=== PATIENT | male | born 1970 | race Caucasian/White ===

== ENCOUNTER → 2022-06-05 | Outpatient (CLI) | payer OTHER, SELFPAY ==
[2022-06-05 09:30] LABS: PSA,Total- Diagnostic 4.47 ng/mL (0.0-4.0)
== END | disposition home or self-care (01) ==
PROVIDERS: Referring Provider Urology; Visit Provider Registered Nurse
DX: R97.20 Elevated prostate specific antigen [PSA] (principal)
CPT/HCPCS: 36415; 84153

== ENCOUNTER → 2022-12-04 | Outpatient (CLI) | payer OTHER, SELFPAY ==
[2022-12-04 16:20] LABS: PSA,Total- Diagnostic 4.63 ng/mL (0.0-4.0)
== END | disposition home or self-care (01) ==
LOC: LAB 13:53
PROVIDERS: Referring Provider Registered Nurse; Visit Provider Registered Nurse
DX: R97.20 Elevated prostate specific antigen [PSA] (principal)
CPT/HCPCS: 36415; 84153

== ENCOUNTER → 2022-12-14 | Outpatient (CLI) | payer OTHER, SELFPAY ==
--- NOTE | 2022-12-14 07:19 | MRI_ITS ---
STUDY: MR PELVIS WITH AND WITHOUT CONTRAST (PROSTATE) REASON FOR EXAM: Male, 52 years old. Elevated PSA TECHNIQUE: Standardized multiparametric prostate MRI with T1, T2, DWI/ADC sequences were obtained in 3 orthogonal planes, and dynamic contrast enhancement sequences. ml of 24ml clariscan contrast material was administered intravenously for the contrast portion of the examination. COMPARISON: None. FINDINGS: The prostate volume measures 75 mm3. The contours of the prostate gland are smooth. There is mass effect on the bladder base. The transition zone is heterogenous. PI-RADS DWI score 1 - No abnormality (normal) on ADC or high b-value DWI. PI-RADS T2W score 2 - A mostly encapsulated nodule OR a homogeneous circumscribed nodule without encapsulation (atypical nodule) or a homogeneous mildly hypointense area between nodules.. Contrast enhancement no early or contemporaneous enhancement; or diffuse multifocal enhancement NOT corresponding to a focal finding on T2W and/or DWI or focal ehancement responding to a lesion demonstrating features of BPH onT2WI (including features of extruded BPH in the PZ). The peripheral zone is homogenous. PI-RADS DWI score 2 - Linear/wedge shaped hypointense on ADC and/or linear/wedge shaped hyperintense on high b-value DWI. PI-RADS T2W score 1 - Uniformaly hyperintense (normal). Contrast enhancement no early or contemporaneous enhancement; or diffuse multifocal enhancement NOT corresponding to a focal finding on T2W and/or DWI or focal enhancement responding to a lesion demonstrating features of BPH onT2WI (including features of extruded BPH in the PZ). The seminal vesicles demonstrate normal margins and T2 signal pattern. No mass lesion or invasion depicted. The rectoprostatic angles are normal. Urinary bladder is normal without wall thickening. The vascular structures of the are normal. Operative changes of the left inguinal abdominal wall. The visualized hollow viscus structures are normal. No bone marrow edema or mass lesion depicted. MRI/Pelvis W/WO Contrast IMPRESSION: 1. PIRADS v2.1 2019 -- 2 - Low (clinically significant cancer is unlikely). Electronically Signed: Tito Escalante (Brooks), at 15:07 EDT Reading Location ID and State: [facility] / [place] , Service support ,
[2022-12-14 08:00] LABS: CREATININE FINGERSTICK < 0.9 mg/dL (0.70-1.30); EGFR FINGERSTICK > 60.0000 mL/min (>60)
== END | disposition home or self-care (01) ==
LOC: MRI 07:16
PROVIDERS: PCP Family Medicine; Referring Provider Urology; Visit Provider Urology
DX: R97.20 Elevated prostate specific antigen [PSA] (principal)
CPT/HCPCS: 72197; A9575

== ENCOUNTER → 2023-06-08 | Outpatient (CLI) | payer OTHER, SELFPAY ==
[2023-06-08 12:27] LABS: PSA,Total- Diagnostic 5.83 ng/mL (0.0-4.0)
== END | disposition home or self-care (01) ==
LOC: LAB 11:18
PROVIDERS: PCP Family Medicine; Referring Provider Urology; Visit Provider Urology
DX: R97.20 Elevated prostate specific antigen [PSA] (principal)
CPT/HCPCS: 36415; 84153

== ENCOUNTER → 2023-09-24 | Outpatient (CLI) | payer OTHER, SELFPAY ==
--- OUTSIDE RECORDS SUMMARY | 2023-09-24 09:30 | XMS RPT_ITS | CCD ---
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 Name Role Phone Anastacio Ronquillo Unavailable Darlin Last Unavailable Unavailable Aleksandra Olmos CMA K Unavailable Unavailable Anastacio Ronquillo Unavailable Darlin Last Unavailable Unavailable YVETTE CLAIRE Admitting Unavailable YVETTE CLAIRE Attending Unavailable YVETTE CLAIRE Primary Care Unavailable LOLLY GARCIA Consulting Unavailable PROVIDER, UNKNOWN Consulting Unavailable PROVIDER, UNKNOWN Consulting Unavailable PROVIDER, UNKNOWN Consulting Unavailable YVETTE CLAIRE Admitting Unavailable YVETTE CLAIRE Attending Unavailable YVETTE CLAIRE Primary Care Unavailable LOLLY GARCIA Consulting Unavailable PROVIDER, UNKNOWN Consulting Unavailable PROVIDER, UNKNOWN Consulting Unavailable PROVIDER, UNKNOWN Consulting Unavailable Keaton Pierre Unavailable [phone] LOLLY Villeda MD Primary Care UnavailKEATON Radford Attending DR LOLLY Villeda MD Primary Care UnavailKEATON Radford Attending DR LOLLY Villeda MD Primary Care Unavaillianne e Medications Completed/Discontinued Medications Medication Drug Class(es) Dates Sig (Normalized) Sig (Original) amLODIPine 10 mg oral tablet (4 sources) Dihydropyridine Calcium Channel Zach take 1 tablet by mouth once daily amLODIPine (NORVASC) 10 mg tablet Take 10 mg by mouth once daily. 0 Active Problems Active Problems Problem Classification Problem Date Documented Da te Episodic/Chronic Abdominal hernia (3 sources) Unilateral inguinal hernia, without obstruction or gangrene, not specified as recurrent; Translations: [Unilateral inguinal hernia, without obstruction or gangrene, not specified as recurrent] Onset: 06-11-2019 Episodic Disorders of lipid metabolism (6 sources) Mixed hyperlipidemia; Translations: [Mixed hyperlipidemia] Onset: 11-09-2021 11-09-2021 Chronic Essential hypertension (13 sources) Hypertensive disorder; Translations: [Essential (primary) hypertension] Onset: 06-11-2019 04-02-2017 Chronic Other and unspecified benign neoplasm (1 source) Hyperplastic polyp of large intestine; Translations: [Polyp of colon] Episodic Other liver diseases (2 sources) Unspecified jaundice; Translations: [Unspecified jaundice] Onset: 07-23-2023 Episodic Other nutritional; endocrine; and metabolic disorders (1 source) Obesity, unspecified; Translations: [Obesity, unspecified] Onset: 06-11-2019 Chronic Other nutritional; endocrine; and metabolic disorders (1 source) Body mass index (BMI) 30.0-30.9, adult; Translations: [Body mass index (BMI) 30.0-30.9, adult] Onset: 06-11-2019 Chronic Other screening for suspected conditions (not mental disorders or infectious disease) (1 source) Patient encounter status; Translations: [Encounter for screening for malignant neoplasm of colon] Episodic Past or Other Problems Problem Classification Problem Date Documented Da te Episodic/Chronic Open wounds of head; neck; and trunk (6 sources) Laceration without foreign body of scalp, initial encounter; Translations: [Laceration without foreign body of scalp, initial encounter] Onset: 04-02-2017 04-02-2017 Episodic Results Test Name Value Interpretation Reference Range Facil ity Vital Signs Date Time Vital Sign Value Performing Clinician Faci lity 12-16-2021 10:02-0400 Diastolic blood pressure 84 mm[Hg] Jade Pritchett MD Work Phone: [facility] 12-16-2021 10:02-0400 Heart rate 76 /min Jade Pritchett MD Work Phone: [facility] 12-16-2021 10:02-0400 Respiratory rate 16 /min Jade Pritchett MD Work Phone: [facility] 12-16-2021 10:02-0400 SaO2% (BldA) [Mass fraction] 99 % Jade Pritchett MD Work Phone: [facility] 12-16-2021 10:02-0400 Systolic blood pressure 133 mm[Hg] Jade Pritchett MD Work Phone: [facility] 12-16-2021 08:40-0400 Body temperature 97.5 [degF] Jade Pritchett MD Work Phone: [facility] 12-16-2021 08:40-0400 Body weight 117 kg Jade Pritchett MD Work Phone: [facility] 04-09-2017 10:28-0400 Body Temperature 98.8 [degF] Anastacio ANDERS [facility] Work Phone: 04-09-2017 10:28-0400 Pulse (Heart Rate) 76 /min Anastacio ANDERS [facility] Work Phone: 04-09-2017 10:28-0400 Respiratory Rate 12 /min Anastacio ANDERS [facility] Work Phone: 04-02-2017 09:39-0400 BMI (Body Mass Index) 31.77 kg/m2 Anastacio ANDERS [facility] Work Phone: 04-02-2017 09:39-0400 Body Temperature 97.7 [degF] Anastacio ANDERS [facility] Work Phone: 04-02-2017 09:39-0400 BP Diastolic 96 mm[Hg] Anastacio ANDERS [facility] Work Phone: 04-02-2017 09:39-0400 BP Systolic 162 mm[Hg] Anastacio ANDERS [facility] Work Phone: 04-02-2017 09:39-0400 Height 193.04 cm Anastacio ANDERS [facility] Work Phone: 04-02-2017 09:39-0400 Pulse (Heart Rate) 72 /min Anastacio ANDERS [facility] Work Phone: 04-02-2017 09:39-0400 Weight 118.39 kg Anastacio ANDERS [facility] Work Phone: Encounters Encounter Date Encounter Type Care Provider Facility Start: 07-23-2023 End: 07-28-2023 ambulatory KEATON PIERRE EDGE WORKER-FORM SETTER SUPERVISOR Facility:A Start: 01-16-2023 End: 01-20-2023 ambulatory KEATON PIERRE EDGE WORKER-FORM SETTER SUPERVISOR Facility:A Start: 01-15-2023 End: 01-20-2023 ambulatory KEATON PIERRE EDGE WORKER-FORM SETTER SUPERVISOR Facility:A Start: 12-28-2021 End: 12-28-2021 ambulatory Eugenia Arriagaos EDGE WORKER.FORM SETTER SUPERVISOR Work Phone: Gastroenterology Procedures Date Procedure Procedure Detail Performing Clinician Start: 12-16-2021 Colonoscopy flx dx w /collj spec when pfrmd Eugenia Barreto EDGE WORKER.FORM SETTER SUPERVISOR Work Phone: Start: 12-16-2021 Colonoscopy Jade Pritchett MD Work Phone: Start: 04-02-2017 End: 04-02-2017 Post-accident non-DOT drug screen Anastacio ANDERS Work Phone: Plan of Treatment Date Care Activity Detail Author Start: 12-17-2031 Colonoscopy COLONOSCOPY [facility] Start: 12-17-2031 COLORECTAL CANCER SCREENING COLORECTAL CANCER SCREENING [facility] Start: 12-16-2022 Colonoscopy COLONOSCOPY [facility] Start: 12-16-2022 COLORECTAL CANCER SCREENING COLORECTAL CANCER SCREENING [facility] Start: 05-18-2022 Influenza vaccination INFLUENZA (Season Ended) [facility] Start: 05-18-2021 Influenza vaccination INFLUENZA (#1) [facility] Start: 2021 SHINGRIX VACCINE (1 of 2) SHINGRIX VACCINE (1 of 2) [facility] Start: 04-09-2017 End: 04-09-2017 Appointment [facility] Work Phone: Start: 04-02-2017 End: 04-02-2017 Appointment Appointment [facility] Work Phone: Start: 2016 COLOGUARD (FIT-DNA) COLOGUARD (FIT-DNA) [facility] Start: 2016 Colonoscopy COLONOSCOPY [facility] Start: 2016 COLORECTAL CANCER SCREENING COLORECTAL CANCER SCREENING [facility] Start: [address] COLONOGRAPHY [facility] Start: 2016 DIABETES SCREEN DIABETES SCREEN [facility] Start: 2016 FECAL OCCULT BLOOD FECAL OCCULT BLOOD [facility] Start: 2016 SIGMOIDOSCOPY SIGMOIDOSCOPY [facility] Start: 2006 LIPID SCREEN LIPID SCREEN [facility] Start: 1990 Urine microalbumin profile DTAP,TDAP,TD (1 - Tdap) [facility] Start: 1989 ANNUAL PCP TEAM CHRONIC DISEASE VISIT ANNUAL PCP TEAM CHRONIC DISEASE VISIT [facility] Start: 1989 BP CONTROLLED (<130/80) BP CONTROLLED (<130/80) [facility] Start: 1989 HEPATITIS C SCREENING HEPATITIS C SCREENING [facility] Start: 1989 HIV SCREENING HIV SCREENING [facility] Start: 1983 Adult depression screening assessment DEPRESSION SCREENING [facility] Start: 1976 COVID-19 VACCINE (1) COVID-19 VACCINE (1) [facility] SURGICAL PATHOLOGY [facility] Work Phone: Immunizations Immunization Date Immunization Notes Care Provider Fa patricia 04-02-2017 TD(adult) unspecifie d formulation Anastacio ANDERS [facility] Work Phone: 04-02-2017 [id number] Anastacio ANDERS [facility] Now [facility] Work Phone: Payers Date Payer Category Payer Unknown [id number] 2016 Unknown [id number] [id number] 1971 Unknown [id number] [id number] 1971 Unknown [id number] [id number] 1971 Unknown [id number] [id number] 1971 Unknown [id number] [id number] 1971 Unknown [id number] 2.16.8 [id number] Social History Date Type Detail Facility Start: [facility]09-[facility] Work Phone: Start: 11-09-2021 Tobacco use and exposure Smokeless tobacco non-user [facility] Work Phone: Start: 11-15-2021 End: 12-28-2021 Alcohol intake Current drinker of alcohol (finding) [facility] Start: 1970 Sex Assigned At Not on file [facility] Start: 11-15-2021 End: 12-16-2021 Exposure to SARS-CoV-2 (event) Not sure [facility] Start: 12-16-2021 History SDOH Alcohol Comment occ [facility] Start: 1970 Sex Assigned At Male [facility] Progress note 12-28-2021 Note Date & Type Note Facility 12-28-2021 Note HNO ID: [id number] Author: Eugenia Barreto APRN.FORM SETTER SUPERVISOR Service: ? Author Type: Nurse Practitioner Type: Progress Notes Filed: 12/28/2021 3:16 PM Note Text: VIRTUAL VISIT FOLLOW UP I had a virtual visit with Mr. Macdonald today for follow up of colonoscopy. UPDATED HISTORY: The patient was seen by 12/16/2021 for colonoscopy for screening colonoscopy(first colonoscopy). The procedure report has been reviewed and findings as follows: Impression: ? - Non-bleeding internal hemorrhoids. ?- One 2 to 4 mm polyp in the rectum, removed with a ?cold snare. Resected and retrieved. FINAL DIAGNOSIS A. Rectal polyp, biopsy: - Hyperplastic polyp PAST MEDICAL HISTORY Diagnosis Date - HTN (hypertension) - Mixed hyperlipidemia - Sleep apnea PAST SURGICAL HISTORY Procedure Laterality Date - COLONOSCOPY 12/16/2021 - HERNIA REPAIR HX - INGUINAL HERNIA REPAIR HX Left 2019 No family history on file. Social History Tobacco Use - Smoking status: Never Smoker - Smokeless tobacco: Never Used Substance Use Topics - Alcohol use: Yes Comment: occ - Drug use: Never Current Outpatient Medications Medication Sig Dispense Refill - lisinopril (ZESTRIL, PRINIVIL) 20 mg tablet Take 20 mg by mouth once daily. - amLODIPine (NORVASC) 10 mg tablet Take 10 mg by mouth once daily. - atorvastatin (LIPITOR) 20 mg tablet Take 20 mg by mouth once daily. - losartan (COZAAR) 25 mg tablet Take 25 mg by mouth once daily. - polyethylene glycol 3350 (MIRALAX, GLYCOLAX) 17 gram/dose powder Use as directed for Miralax / Gatorade Bowel Prep Kit 238 g 0 - Bisacodyl (DULCOLAX) 5 mg tab Use as directed for Miralax / Gatorade Bowel Prep Kit 4 tablet 0 No current facility-administered medications for this visit. ALLERGIES No Known Allergies PHYSICAL FINDINGS OF NOTE: General ? Normal, healthy, cooperative, in no acute distress Able to interact verbally by video conference Psych ? ORIENTATION: normal to time place, person and situation Mood/Affect: AFFECT AND MOOD: Normal Head/Neuro ? Normal size and shape Facial appearance normal Pulmonary ? respiratory effort normal Abdominal ? Not performed Skin ? abnormal lesions not visualized Motor ? patient seen sitting with Normal appearing strength and coordination IMPRESSION (K63.5) Hyperplastic colonic polyp, unspecified part of colon (primary encounter diagnosis) RECOMMENDATION: Assessment/Plan (K63.5) Hyperplastic colonic polyp, unspecified part of colon (primary encounter diagnosis) 1. Hyperplastic colonic polyp, unspecified part of colon -I have reviewed the procedure and pathology reports, as well as the images, with the patient. One 2 to 4 mm polyp in the rectum - hyperplastic polyp- Patient denies a family history of colon cancer or colon polyps. REcommend 10 year colon cancer surveillance screening. Follow up in office 3 months/PRN. Recommended to please call office/go to ER if fever, chills, chest pain, SOB, diarrhea, nausea, emesis, worsening abdominal pain, dehydration occurs I spent 30 minutes in the visit, with more than 50% of the total gkja-uv-aoyo time of the visit in counseling / coordination of care. I have confirmed and edited as necessary, the PFSH and ROS obtained by others. Eugenia Barreto APRN.FORM SETTER SUPERVISOR December 28, 2021 3:12 PM [facility] History of Present illness Narrative 12-28-2021 Eugenia Barreto APRN.[facility] - 12/28/2021 2:58 PM EDT Note Date & Type Note Facility 12-28-2021 History of Presen t illness Narrative VIRTUAL VISIT FOLLOW UP I had a virtual visit with Mr. Macdonald today for follow up of colonoscopy. UPDATED HISTORY: The patient was seen by 12/16/2021 for colonoscopy for screening colonoscopy(first colonoscopy). The procedure report has been reviewed and findings as follows: Impression: - Non-bleeding internal hemorrhoids. - One 2 to 4 mm polyp in the rectum, removed with a cold snare. Resected and retrieved. FINAL DIAGNOSIS A. Rectal polyp, biopsy: - Hyperplastic polyp PAST MEDICAL HISTORY Diagnosis Date HTN (hypertension) Mixed hyperlipidemia Sleep apnea PAST SURGICAL HISTORY Procedure Laterality Date COLONOSCOPY 12/16/2021 HERNIA REPAIR HX INGUINAL HERNIA REPAIR HX Left 2019 No family history on file. Social History Tobacco Use Smoking status: Never Smoker Smokeless tobacco: Never Used Substance Use Topics Alcohol use: Yes Comment: occ Drug use: Never Current Outpatient Medications Medication Sig Dispense Refill lisinopril (ZESTRIL, PRINIVIL) 20 mg tablet Take 20 mg by mouth once daily. amLODIPine (NORVASC) 10 mg tablet Take 10 mg by mouth once daily. atorvastatin (LIPITOR) 20 mg tablet Take 20 mg by mouth once daily. losartan (COZAAR) 25 mg tablet Take 25 mg by mouth once daily. polyethylene glycol 3350 (MIRALAX, GLYCOLAX) 17 gram/dose powder Use as directed for Miralax / Gatorade Bowel Prep Kit 238 g 0 Bisacodyl (DULCOLAX) 5 mg tab Use as directed for Miralax / Gatorade Bowel Prep Kit 4 tablet 0 No current facility-administered medications for this visit. ALLERGIES No Known Allergies PHYSICAL FINDINGS OF NOTE: General Normal, healthy, cooperative, in no acute distress Able to interact verbally by video conference Psych ORIENTATION: normal to time place, person and situation Mood/Affect: AFFECT AND MOOD: Normal Head/Neuro Normal size and shape Facial appearance normal Pulmonary respiratory effort normal Abdominal Not performed Skin abnormal lesions not visualized Motor patient seen sitting with Normal appearing strength and coordination IMPRESSION (K63.5) Hyperplastic colonic polyp, unspecified part of colon (primary encounter diagnosis) RECOMMENDATION: Assessment/Plan (K63.5) Hyperplastic colonic polyp, unspecified part of colon (primary encounter diagnosis) 1. Hyperplastic colonic polyp, unspecified part of colon -I have reviewed the procedure and pathology reports, as well as the images, with the patient. One 2 to 4 mm polyp in the rectum - hyperplastic polyp- Patient denies a family history of colon cancer or colon polyps. REcommend 10 year colon cancer surveillance screening. Follow up in office 3 months/PRN. Recommended to please call office/go to ER if fever, chills, chest pain, SOB, diarrhea, nausea, emesis, worsening abdominal pain, dehydration occurs I spent 30 minutes in the visit, with more than 50% of the total [id number] time of the visit in counseling / coordination of care. I have confirmed and edited as necessary, the PFSH and ROS obtained by others. Eugenia Barreto APRN.FORM SETTER SUPERVISOR December 28, 2021 3:12 PM documented in this encounter [facility] Nurse Note 12-16-2021 Jennifer Del Cid RN - 12/16/2021 9:42 AM EDTGlorena Chung RN - 12/16/2021 9:03 AM EDT Note Date & Type Note Facility 12-16-2021 Nurse Note Pt received in PACU. Pt awake but mildly drowsy.Denies pain or nausea. Abd soft and non distended. Jennifer Del Cid RN [facility] PRE-OP NURSING HAND OFF NOTE SBAR Hand off given to Janet Reyna RN. Hand off was communicated and all questions were answered. Shawanda Chung RN documented in this encounter [facility] History and physical note 12-16-2021 Jade Pritchett MD - 12/16/2021 9:00 AM EDTLjesse Pritchett MD - 12/16/2021 9:00 AM EDT Note Date & Type Note Facility 12-16-2021 History and physi stephanie note UPDATED PROCEDURAL SEDATION HISTORY AND PHYSICAL EXAMINATION SERVICE DATE: 12/16/2021 SERVICE TIME: 9:01 PHYSICAL EXAM MUST BE COMPLETED ON ADMISSION PROCEDURE: colonoscopy, possible biopsies Procedure Indications: screening for colon cancer The History and Physical (completed in the past 30 days) has been reviewed and the patient has been examined. The contents accurately reflect the patient's condition with the following additions or revisions since the H&P was completed. ASA Class: ASA Class:: Patient with mild systemic disease Examination indicates no changes. AIRWAY: Airway Visualization of Uvula: Yes Mouth opening greater than 2 fingerbreadths: Yes Neck Full Range of Motion: Yes LUNGS: Lungs clear to auscultation CARDIAC: Regular rhythm,Regular rate Provisional Diagnosis/Treatment Plan: colonoscopy, possible biopsies SEDATION GOAL: Moderate This H&P can be found in the Electronic Medical Record . SIGNATURE: Jade Pritchett MD PATIENT NAME: Sean Macdonald DATE: December 16, 2021 TIME: 9:02 AM HISTORY AND PHYSICAL Sean Macdonald 1970 REFERRING PHYSICIAN: Eugenia Barreto APRN.FORM SETTER SUPERVISOR CHIEF COMPLAINT: No chief complaint on file. HPI: The patient is a 51 year old male presents for screening for colon cancer via colonoscopy The patient denies blood in stools, denies abdominal pain, and denies changes in bowel habits. The patient notes no colon cancer in immediate family. The patient has not had previous colonoscopy. PAST MEDICAL HISTORY Diagnosis Date HTN (hypertension) Mixed hyperlipidemia PAST SURGICAL HISTORY Procedure Laterality Date INGUINAL HERNIA REPAIR HX Left 2019 Current Outpatient Medications Medication Sig polyethylene glycol 3350 (MIRALAX, GLYCOLAX) 17 gram/dose powder Use as directed for Miralax / Gatorade Bowel Prep Kit Bisacodyl (DULCOLAX) 5 mg tab Use as directed for Miralax / Gatorade Bowel Prep Kit lisinopril (ZESTRIL, PRINIVIL) 20 mg tablet Take 20 mg by mouth once daily. amLODIPine (NORVASC) 10 mg tablet Take 10 mg by mouth once daily. atorvastatin (LIPITOR) 20 mg tablet Take 20 mg by mouth once daily. losartan (COZAAR) 25 mg tablet Take 25 mg by mouth once daily. (Patient not taking: Reported on 11/15/2021 ) ALLERGIES: Patient has no known allergies. PERSONAL HISTORY: Social History Tobacco Use Smoking status: Never Smoker Smokeless tobacco: Never Used Substance Use Topics Alcohol use: Yes Drug use: Never FAMILY HISTORY: No family history on file. REVIEW OF SYSTEMS: General - denies fevers HEENT - denies trauma/infections Resp - denies coughing up blood, denies breathing difficulties Cardiac - denies chest pain GI - denies abdominal pain, denies blood in stools, denies vomiting up of blood - denies blood in urine Endocrine - denies diabetes Psych - denies hallucinations Physical examination: Vital signs in chart, reviewed and noted by me General WD/WN WM in no apparent distress, alert and oriented Head Normocephalic. EOM intact with sclera clear. Mouth with mucus membranes moist. Neck - supple with no jugular venous distention noted. Trachea is midline. Lungs clear to auscultation. Normal breath sounds. No rales/rhonchi/wheezing noted. Heart normal heart sounds. No rubs/clicks/murmurs noted. Regular rate. Abdomen soft and benign. Extremities no pitting edema noted. Skin Normal skin integrity. Neurological non focal Psych calm and appropriate Impression: screening for colon cancer Discussion/Plan/Recommendations: I have discussed the above with the patient. I have offered colonoscopy, possible biopsies I have explained the procedure to the patient. I have counseled the patient as to the risks of the procedure, including but not limited to: infection, bleeding, injury to any intrabdominal organs such as liver/spleen, perforation of the GI tract, inability to complete the procedure, complications of anesthesia, etc. the patient understands. The patient was offered a surgery/procedure at a [facility] facility. The provider and patient have discussed in detail the risk of exposure to and/or potential harm posed by the COVID-19 virus with having a surgery/procedure at this time versus the risk of delaying the surgery/procedure. It is not possible to know either the risk of delaying the surgery or procedure or chance of getting an infection with perfect accuracy, but a joint decision was made between the patient and the provider to proceed at this time with the scheduled surgery/procedure. The patient wishes to proceed. I have answered all questions to the patient s satisfaction and the patient has no further questions. Jade Pritchett MD documented in this encounter [facility] Note 12-13-2021 Telephone Encounter - Tess Perkins RN - 12/13/2021 1:21 PM EDT Note Date & Type Note Facility 12-13-2021 Miscellaneous Notes Patient calling to request Miralax Bowel Prep instructions for upcoming colonoscopy. Informed patient how he can review instructions on [facility] website, which he states he will do. Instructed to call office if has any other questions. Tess Perkins RN documented in this encounter [facility] Progress note 11-15-2021 Note Date & Type Note Facility 11-15-2021 Note HNO ID: [id number] Author: Eugenia Barreto APRN.FORM SETTER SUPERVISOR Service: ? Author Type: Nurse Practitioner Type: Progress Notes Filed: 11/15/2021 8:45 AM Note Text: CHIEF COMPLAINT: Patient presents with: Outpatient Colonoscopy This consult was requested by Keaton Pierre* for an opinion regarding colon cancer screening. My final recommendations will be communicated to the requesting health care provider by way of the shared medical record for internal providers or letter via the [employer] for external providers. Sean Macdonald is a 51 year old male with a past medical history of hyperlipidemia, HTN, elevated bilirubin. Who presents for colon cancer screening. HPI: The patient denies change in bowel habits, denies black stool,rectal bleeding or abdominal pain. Having a formed bowel movement daily. Denies upper GI concerns Record Review: [facility] / Outside records reviewed. PAST MEDICAL HISTORY Diagnosis Date - HTN (hypertension) - Mixed hyperlipidemia PAST SURGICAL HISTORY Procedure Laterality Date - INGUINAL HERNIA REPAIR HX Left 2019 Allergies: ALLERGIES No Known Allergies Medications: lisinopril (ZESTRIL, PRINIVIL) 20 mg tablet Take 20 mg by mouth once daily. amLODIPine (NORVASC) 10 mg tablet Take 10 mg by mouth once daily. atorvastatin (LIPITOR) 20 mg tablet Take 20 mg by mouth once daily. polyethylene glycol 3350 (MIRALAX, GLYCOLAX) 17 gram/dose powder Use as directed for Miralax / Gatorade Bowel Prep Kit Bisacodyl (DULCOLAX) 5 mg tab Use as directed for Miralax / Gatorade Bowel Prep Kit losartan (COZAAR) 25 mg tablet Take 25 mg by mouth once daily. History reviewed. No pertinent family history. Employer And Job Title: None on file Years Of Education Completed: Not specified Marital Status: Social History Tobacco Use - Smoking status: Never Smoker - Smokeless tobacco: Never Used Substance Use Topics - Alcohol use: Yes - Drug use: Never Review of Systems: Review of Systems All other systems reviewed and are negative. Are you taking any blood thinners? No Physical Examination: BP 138/88 Pulse 91 Ht 6' 3.984 (1.93m) Wt 258 lb (117.0kg) SpO2 99% BMI 31.42 kg/(m2). Physical Exam Constitutional: Appearance: Normal appearance. He is normal weight. HENT: Head: Normocephalic and atraumatic. Eyes: Extraocular Movements: Extraocular movements intact. Pupils: Pupils are equal, round, and reactive to light. Cardiovascular: Rate and Rhythm: Normal rate and regular rhythm. Pulses: Normal pulses. Heart sounds: Normal heart sounds. Pulmonary: Effort: Pulmonary effort is normal. Breath sounds: Normal breath sounds. Abdominal: General: Abdomen is flat. Bowel sounds are normal. Palpations: Abdomen is soft. Musculoskeletal: General: Normal range of motion. Cervical back: Normal range of motion and neck supple. Skin: General: Skin is warm and dry. Neurological: General: No focal deficit present. Mental Status: He is alert and oriented to person, place, and time. Psychiatric: Mood and Affect: Mood normal. Behavior: Behavior normal. ASSESSMENT: Colon cancer screening (primary encounter diagnosis) PLAN: Assessment/Plan (Z12.11) Colon cancer screening (primary encounter diagnosis) 1. Colon cancer screening - COLONOSCOPY SCREENING -Patient presents today for colon cancer screening. Patient denies upper or lower GI concerns at this time. Denies a family history of colon cancer or colon polyps. Recommend colonoscopy Follow up in office 3 months/PRN. Recommended to please call office/go to ER if fever, chills, chest pain, SOB, diarrhea, nausea, emesis, worsening abdominal pain, dehydration occurs I spent 30 minutes in the visit, with more than 50% of the total [id number] time of the visit in counseling / coordination of care. I have confirmed and edited as necessary, the PFSH and ROS obtained by others. Eugenia Barreto APRN.FORM SETTER SUPERVISOR November 15, 2021 8:44 AM [facility] - Mei Mathis LPN - 11/15/2021 8:59 AM EST Note Date & Type Note Facility 11-15-2021 Miscellaneous Notes Patient is scheduled at [facility] on 12/16/[address] Pritchett for a colonoscopy. DX: Colon cancer screening [Z12.11 (ICD-10-CM)] Verbal and written instructions given. documented in this encounter [facility] Evaluation note Note Date & Type Note Facility documented in this encounter [facility] Evaluation note Note Date & Type Note Facility documented in this encounter [facility] Reason for visit Narrative Outpatient Procedure (Routine) - Closed Note Date & Type Note Facility Referral ID Status Reason Start Date Expiration Date V isits Requested Visits Authorized [id number] Closed Auto-Generate d Referral 12/16/2021 11/15/2022 1 1 [facility] Summary Purpose Family History No Family History Records FoundNo Family History Records FoundNo Family History Records Found Advance Directives No Advanced Directives Records FoundDocuments on File Type Date Recorded Patient Transmitter Supervisor Expl anation Advance Directive(s) 11/25/2021 12:27 PM Documents on File Type Date Recorded Patient Transmitter Supervisor Expl anation Advance Directive(s) 12/16/2021 8:13 AM Advance Directive(s) 11/25/2021 12:27 PM Documents on File Type Date Recorded Patient Transmitter Supervisor Expl anation Advance Directive(s) 12/16/2021 8:13 AM Advance Directive(s) 11/25/2021 12:27 PM Medications Administered Section Inactive Administered Medications - up to 3 most recent administrations Medication Order MAR Action Action Date Dose Rate Site diphenhydrAMINE 12.5-50 mg injection (BENADRYL) 12.5-50 mg, INTRAVENOUS, DIRECTED, Starting on Sun12/16/21 at 0930, Until Sun12/16/21 at 1329, DOSING DIRECTED BY PHYSICIAN FOR PROCEDURAL SEDATION ONLY, Intraprocedure Given 12/16/2021 9:10 AM EDT 50 mg fentaNYL 50 mcg/mL 25-100 mcg injection (SUBLIMAZE) 25-100 mcg, INTRAVENOUS, DIRECTED, Starting on Sun12/16/21 at 0930, Until Sun12/16/21 at 1329, DOSING DIRECTED BY PHYSICIAN FOR PROCEDURAL SEDATION ONLY, Intraprocedure Given 12/16/2021 9:22 AM EDT 50 mcg Additional Source Comments (unrecognized sect ion and content) No Status Records FoundNo Status Records FoundNo Status Records Found INFORMATION SOURCE (unrecogn ized section and content) DATE CREATED AUTHOR AUTHOR'S ORGANIZ ATION 12/29/2021 [facility] DATE CREATED AUTHOR AUTHOR'S ORGANIZ ATION 08/05/2023 [facility] ([place]) Source Comments (unrecognize d section and content) In the event this informatio n is protected by the Federal Confidentiality of Alcohol and Drug Abuse Patient Records regulations: The Federal rules restrict any use of the information to criminally investigate or prosecute any alcohol or drug abuse patient.[facility] the event this information is protected by the Federal Confidentiality of Alcohol and Drug Abuse Patient Records regulations: The Federal rules restrict any use of the information to criminally investigate or prosecute any alcohol or drug abuse patient.[facility] the event this information is protected by the Federal Confidentiality of Alcohol and Drug Abuse Patient Records regulations: The Federal rules restrict any use of the information to criminally investigate or prosecute any alcohol or drug abuse patient.[facility] the event this information is protected by the Federal Confidentiality of Alcohol and Drug Abuse Patient Records regulations: The Federal rules restrict any use of the information to criminally investigate or prosecute any alcohol or drug abuse patient.[facility] Reason for Visit (unrecogniz ed section and content) Reason Comments Procedure coloonscopy Reason Comments Surgical Followup colonoscopy complete d on 12/16/2021 Care Teams (unrecognized sec tion and content) 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 This clinical summary was aggregated from multiple sources. Caution should be exercised in using it in the provision of clinical care. This summary normalizes information from multiple sources, and as a consequence, information in this document may materially change the coding, format and clinical context of patient data. In addition, data may be omitted in some cases. CLINICAL DECISIONS SHOULD BE BASED ON THE PRIMARY CLINICAL RECORDS. [facility] [employer] [facility]. provides no warranty or guarantee of the accuracy or completeness of information in this document.
[2023-09-24 11:10] LABS: PSA,Total- Diagnostic 6.28 ng/mL (0.0-4.0)
== END | disposition home or self-care (01) ==
LOC: LAB 09:05
PROVIDERS: PCP Family Medicine; Visit Provider Urology
DX: R97.20 Elevated prostate specific antigen [PSA] (principal)
CPT/HCPCS: 36415; 84153

== ENCOUNTER → 2023-09-25 | Outpatient (CLI) | payer OTHER, SELFPAY ==
[2023-09-26 12:09] LABS: PSA, Free 1.27 ng/mL; PSA, Free % 22.9 % (.)
== END | disposition home or self-care (01) ==
LOC: LAB 10:36
PROVIDERS: PCP Family Medicine; Referring Provider Urology; Visit Provider Urology
DX: R97.20 Elevated prostate specific antigen [PSA] (principal)
CPT/HCPCS: 36415; 84153; 84154

== ENCOUNTER → 2024-03-21 | Outpatient (CLI) | payer OTHER, SELFPAY ==
[2024-03-21 11:21] LABS: PSA,Total- Diagnostic 5.64 ng/mL (0.0-4.0)
== END | disposition home or self-care (01) ==
LOC: LAB 09:30
PROVIDERS: PCP Family Medicine; Referring Provider Urology; Visit Provider Urology
DX: R97.20 Elevated prostate specific antigen [PSA] (principal)
CPT/HCPCS: 36415; 84153

== ENCOUNTER → 2025-04-10 | Outpatient (CLI) | payer OTHER, SELFPAY ==
[2025-04-10 11:39] LABS: PSA,Total- Diagnostic 5.53 ng/mL (0.00-4.00)
== END | disposition home or self-care (01) ==
PROVIDERS: PCP Family Medicine; Referring Provider Urology; Visit Provider Urology
DX: R97.20 Elevated prostate specific antigen [PSA] (principal)
CPT/HCPCS: 36415; 84153